=== PATIENT | female | born 1955 | race Caucasian/White ===

== ENCOUNTER 2017-10-03 08:25 | Inpatient (IN) | payer BC, OTHER, MEDICARE ==
[2017-10-03] MEDS: TRANEXAMIC ACID 1,000 MG in D5W 100 ML AT CLOSURE X1 IVPB (08:00)
[2017-10-03] MEDS: CEFAZOLIN 2 GM/50 ML (PMX) 50 ML IVPB (08:00)
[2017-10-03] MEDS ORDERED: ONDANSETRON 4 MG INJ (09:12)
[2017-10-03] MEDS ORDERED: FENTAnyl 50 MCG/ML VIAL (09:12)
[2017-10-03] MEDS ORDERED: MIDAZOLAM 1 MG/ML 2 ML INJ ×2 (09:12→11:12)
[2017-10-03] MEDS ORDERED: GLYCOPYRROLATE 0.4 MG INJ (09:12)
[2017-10-03] MEDS ORDERED: PROPOFOL 20 ML (09:12)
[2017-10-03] MEDS ORDERED: NEOSTIGMINE 3 MG/3 ML SYRINGE (09:12)
[2017-10-03] MEDS ORDERED: ROCURONIUM 50 MG INJ (09:12)
[2017-10-03] MEDS ORDERED: CEFAZOLIN 1 GM INJ (09:12)
[2017-10-03] MEDS ORDERED: DEXAMETHASONE 4 MG/ML 1 ML INJ (09:13)
[2017-10-03] MEDS ORDERED: PROPOFOL 100 ML (09:14)
[2017-10-03] MEDS ORDERED: morphine SULFATE/PF (10 MG/10 ML) INJ (09:15)
[2017-10-03] MEDS ORDERED: SUGAMMADEX SODIUM 200 MG/2 ML VIAL IV ×2 (09:29→12:54)
[2017-10-03] MEDS ORDERED: BACITRACIN 50000 UNITS INJ (10:12)
[2017-10-03] MEDS ORDERED: POLYMYXIN B 500000 UNIT INJ (10:14)
[2017-10-03] MEDS: TRANEXAMIC ACID 1,000 MG in D5W 100 ML AT INCISION X1 IVPB ×2 (11:50→12:02)
[2017-10-03] MEDS ORDERED: HYDROmorphONE (0.2 MG/ML) 10ML SYG IV ×3 (12:00)
[2017-10-03] MEDS ORDERED: MIDAZOLAM 1 MG/ML 2 ML INJ IV (12:00)
[2017-10-03] MEDS ORDERED: DIPHENHYDRAMINE 50 MG INJ IV (12:00)
[2017-10-03] MEDS ORDERED: EPHEDrine SULFATE 50 MG/5 ML SYG IV (12:00)
[2017-10-03] MEDS ORDERED: LABETALOL HCL 20MG INJ IV (12:00)
[2017-10-03] MEDS ORDERED: MEPERIDINE 25 MG INJ IV (12:00)
[2017-10-03] MEDS ORDERED: IPRATROPIUM (NEB) 0.5 MG/2.5 ML AMP HHN (12:00)
[2017-10-03] MEDS ORDERED: ALBUTEROL 0.083% (NEB) 2.5 MG/3 ML AMP HHN (12:00)
[2017-10-03] MEDS ORDERED: OXYCODONE/ACETAMINOPHEN (5/325) TAB PO ×2 (12:00)
[2017-10-03] MEDS ORDERED: hydrALAzine 20 MG INJ IV ×2 (12:00→16:30)
[2017-10-03] MEDS ORDERED: FENTAnyl 50 MCG/ML VIAL IV ×3 (12:00)
[2017-10-03] MEDS ORDERED: SENNA/DOCUSATE NA (8.6MG/50MG) TAB PO (13:00)
[2017-10-03] MEDS: ONDANSETRON 4 MG INJ IV ×3 (13:00→17:39)
[2017-10-03] MEDS ORDERED: BISACODYL 10 MG SUPP PR (13:00)
[2017-10-03] MEDS ORDERED: NA PHOSPHATE/BIPHOS 133 ML ENEMA PR (13:00)
[2017-10-03] MEDS: DOCUSATE SODIUM 100 MG CAP PO (13:00)
[2017-10-03] MEDS ORDERED: MAGNESIUM HYDROXIDE 30ML CUP PO (13:00)
[2017-10-03] MEDS ORDERED: ZOLPIDEM 5 MG TAB PO (13:00)
[2017-10-03] MEDS ORDERED: NACL 0.9% 3 ML SYG IV (13:00)
[2017-10-03] MEDS ORDERED: NALOXONE (0.4 MG/ML) INJ IV (13:00)
[2017-10-03] MEDS ORDERED: BETHANECHOL 25 MG TAB PO (13:00)
[2017-10-03] MEDS ORDERED: oxyCODONE 5 MG TAB PO (13:00)
[2017-10-03] MEDS: ASPIRIN (EC) 325 MG TAB PO (13:00)
[2017-10-03] MEDS ORDERED: CEFAZOLIN 1 GM/50 ML (PMX) 50 ML IVPB (13:00)
[2017-10-03] MEDS: TRIMETHOBENZAMIDE 100 MG/ML VIAL IM (14:55)
[2017-10-03] MEDS: SOD CHLORIDE 0.9% 1,000 ML IV (17:20)
[2017-10-03] MEDS ORDERED: ONDANSETRON INJ 8 MG in DEXTROSE 5% 50 ML IV (20:00)
[2017-10-03] MEDS: GABAPENTIN 100 MG CAP PO (20:02)
[2017-10-03] MEDS: CEFAZOLIN 1 GM/50 ML (PMX) 50 ML IVPB (20:12)
[2017-10-03] MEDS: DIPHENHYDRAMINE 50 MG INJ IM (20:15)
[2017-10-03] MEDS: METOCLOPRAMIDE 10 MG INJ IV (20:17)
[2017-10-04] MEDS: SOD CHLORIDE 0.9% 1,000 ML IV ×2 (04:09→12:44)
[2017-10-04] MEDS: CEFAZOLIN 1 GM/50 ML (PMX) 50 ML IVPB ×2 (04:09→11:26)
[2017-10-04] MEDS: PANTOPRAZOLE (EC) 40 MG TAB PO (05:27)
[2017-10-04 05:51] LABS: ADD MAN DIFF? NO
[2017-10-04 06:04] LABS: WHITE BLOOD COUNT 13.7 10^3/ul (4.8-10.8)
[2017-10-04 06:04] LABS: BASOPHILS % 0.1 % (0.0-2.0); HEMATOCRIT 36.3 % (37.0-47.0); LYMPHOCYTES # 1.4 10^3/ul (0.8-2.9); LYMPHOCYTES % 10.1 % (15.0-51.0); MEAN CORPUSCULAR HEMOGLOBIN 29.6 pg (29.0-33.0); MEAN CORPUSCULAR HGB CONC 33.1 g/dl (32.0-37.0); MEAN CORPUSCULAR VOLUME 89.4 fl (82.0-101.0); MEAN PLATELET VOLUME 10.1 fl (7.4-10.4); MONOCYTE # 0.9 10^3/ul (0.3-0.9); MONOCYTES % 6.7 % (0.0-11.0); NEUTROPHIL # 11.3 10^3/ul (1.6-7.5); NEUTROPHILS % 82.5 % (39.0-77.0); PLATELET COUNT 234 10^3/UL (140-415); RED BLOOD COUNT 4.06 10^6/ul (4.20-5.40); RED CELL DISTRIBUTION WIDTH 12.5 % (11.5-14.5)
[2017-10-04 06:28] LABS: ANION GAP 12 (8-16); BLOOD UREA NITROGEN 17 mg/dl (7-20); CALCIUM 8.4 mg/dl (8.4-10.2); CARBON DIOXIDE 27 mmol/L (21-31); CHLORIDE 108 mmol/L (97-110); CREATININE 0.64 mg/dl (0.44-1.00); GLUCOSE 129 mg/dl (70-220); POTASSIUM 4.6 mmol/L (3.5-5.1); SODIUM 142 mmol/L (135-144)
[2017-10-04] MEDS: DOCUSATE SODIUM 100 MG CAP PO ×2 (08:37→21:24)
[2017-10-04] MEDS: CELECOXIB 200 MG CAP PO ×2 (08:37→21:24)
[2017-10-04] MEDS: GABAPENTIN 100 MG CAP PO ×2 (08:37→21:24)
[2017-10-04] MEDS: ASPIRIN (EC) 325 MG TAB PO (08:37)
[2017-10-04] MEDS: FERROUS FUMARATE (SR) TAB PO ×2 (08:37→21:24)
[2017-10-04] MEDS: METOPROLOL 50 MG TAB PO ×2 (12:00→21:28)
[2017-10-04] MEDS: LEVOTHYROXINE 112 MCG TAB PO (12:30)
[2017-10-04] MEDS ORDERED: CEPASTAT LOZENGE MT (12:30)
[2017-10-04] MEDS: KETOROLAC 15 MG INJ IV (17:58)
[2017-10-05] MEDS: oxyCODONE 5 MG TAB PO ×3 (04:26→13:52)
[2017-10-05 05:21] LABS: ADD MAN DIFF? NO
[2017-10-05 05:28] LABS: BASOPHILS % 0.2 % (0.0-2.0); EOSINOPHILS % 0.2 % (0.0-7.0); HEMATOCRIT 31.1 % (37.0-47.0); HEMOGLOBIN 10.5 g/dl (12.0-16.0); LYMPHOCYTES % 18.3 % (15.0-51.0); MEAN CORPUSCULAR HEMOGLOBIN 30.1 pg (29.0-33.0); MEAN CORPUSCULAR HGB CONC 33.8 g/dl (32.0-37.0); MEAN CORPUSCULAR VOLUME 89.1 fl (82.0-101.0); MEAN PLATELET VOLUME 10.6 fl (7.4-10.4); MONOCYTE # 0.9 10^3/ul (0.3-0.9); MONOCYTES % 7.9 % (0.0-11.0); NEUTROPHIL # 7.9 10^3/ul (1.6-7.5); NEUTROPHILS % 73.1 % (39.0-77.0); PLATELET COUNT 162 10^3/UL (140-415); RED BLOOD COUNT 3.49 10^6/ul (4.20-5.40); RED CELL DISTRIBUTION WIDTH 13.3 % (11.5-14.5)
[2017-10-05 05:28] LABS: WHITE BLOOD COUNT 10.8 10^3/ul (4.8-10.8)
[2017-10-05 05:53] LABS: ANION GAP 6 (8-16); BLOOD UREA NITROGEN 19 mg/dl (7-20); CALCIUM 8.3 mg/dl (8.4-10.2); CARBON DIOXIDE 32 mmol/L (21-31); CHLORIDE 107 mmol/L (97-110); CREATININE 0.59 mg/dl (0.44-1.00); GLUCOSE 99 mg/dl (70-220); POTASSIUM 4.2 mmol/L (3.5-5.1); SODIUM 141 mmol/L (135-144)
[2017-10-05] MEDS: PANTOPRAZOLE (EC) 40 MG TAB PO (06:04)
[2017-10-05] MEDS: LEVOTHYROXINE 112 MCG TAB PO (06:04)
[2017-10-05] MEDS: DOCUSATE SODIUM 100 MG CAP PO (09:11)
[2017-10-05] MEDS: FERROUS FUMARATE (SR) TAB PO (09:11)
[2017-10-05] MEDS: ASPIRIN (EC) 325 MG TAB PO (09:11)
[2017-10-05] MEDS: METOPROLOL 50 MG TAB PO (09:12)
[2017-10-05] MEDS: GABAPENTIN 100 MG CAP PO (09:14)
[2017-10-05] MEDS: CELECOXIB 100 MG CAP PO (09:41)
== END 2017-10-05 15:22 | disposition home health service (06) | DRG 470 ==
LOC: REC 08:25 → MS1 15:25
PROC: 0SR904A Replacement of Right Hip Joint with Ceramic on Polyethylene Synthetic Substitute, Uncemented, Open Approach (ICD-10-PCS; principal; 2017-10-03 10:00)
DX: M16.11 Unilateral primary osteoarthritis, right hip (principal); I10 Essential (primary) hypertension; E03.9 Hypothyroidism, unspecified; D72.829 Elevated white blood cell count, unspecified; E78.5 Hyperlipidemia, unspecified
CPT/HCPCS: 73530; 80048; 85025; 86850; 86900; 86901; 87081; 88304; 88311; 97110; 97116; 97163